=== PATIENT | female | born 1975 | race Caucasian/White ===

== ENCOUNTER → 2024-04-21 | Outpatient (CLI) | payer BC ==
[~2024-04-21] MED LIST: Gadoterate 20 ML VIAL IV ONE
== END ==
LOC: COL.RAD 09:39
DX: R90.82 White matter disease, unspecified (principal); R51.9 Headache, unspecified; Z85.850 Personal history of malignant neoplasm of thyroid; Z98.890 Other specified postprocedural states
CPT/HCPCS: A9575